=== PATIENT | male | born 1985 | race Caucasian/White ===

== ENCOUNTER 2024-11-27 12:20 | Emergency (ER) | payer OTHER, SELFPAY ==
--- NOTE | ~2024-11-27 | XR_ITS ---
EXAM/ PROCEDURE: XR elbow LT min 3V - 11/27/2024 13:45 CDT HISTORY: 39 years old Male with fall off ladder COMPARISON: None available TECHNIQUE: Three view(s) FINDINGS/ IMPRESSION: There are no fractures or dislocations.Joint spaces are within normal limits. Reviewed, dictated and finalized at location A.
--- NOTE | ~2024-11-27 | XR_ITS ---
EXAM/ PROCEDURE: XR shoulder LT min 2V - 11/27/2024 13:45 CDT HISTORY: 39 years old Male with fall off ladder COMPARISON: None available TECHNIQUE: Four view(s) FINDINGS/ IMPRESSION: There are no fractures or dislocations.Joint spaces are within normal limits. Reviewed, dictated and finalized at location A.
--- NOTE | ~2024-11-27 | XR_ITS ---
EXAM/ PROCEDURE: XR wrist LT min 3V - 11/27/2024 13:45 CDT HISTORY: 39 years old Male with fall off ladder COMPARISON: None available TECHNIQUE: Three view(s) FINDINGS/ IMPRESSION: There are no fractures or dislocations.Joint spaces are within normal limits. Reviewed, dictated and finalized at location A.
--- NOTE | ~2024-11-27 | XR_ITS ---
EXAM/ PROCEDURE: XR hip LT 2V w AP pelvis - 11/27/2024 13:45 CDT HISTORY: 39 years old Male with fall off ladder COMPARISON: None available TECHNIQUE: Three view(s) FINDINGS/ IMPRESSION: There are no fractures or dislocations.Joint spaces are within normal limits. Reviewed, dictated and finalized at location A.
--- OUTSIDE RECORDS SUMMARY | 2024-11-27 12:22 | XMS_ITS | Clinical Summary ---
Author Organization [facility] Address [address] [place] [address] Care Team Providers Care Process Project Engineer Name Role Phone Unavailable Primary Care Provider Unavailabl e Social History Tobacco Use Types Packs/Day Years Used Date Smoking Tobacco: Never Assessed Sex and Gender Information Value Date Recorded Sex Assigned at Not on file Legal Sex Male 8:48 AM CDT Gender Identity Not on file Sexual Orientation Not on file Plan of Treatment Health Maintenance Due Date Last Done Comments HPV VACCINES (1 - Male 3-dose series) 1998 DTAP/TDAP/TD VACCINES (1 - Tdap) 2002 HEPATITIS B VACCINES (1 of 3 - 19+ 3-dose series) 02/04 INFLUENZA VACCINE (#1) 2024 Insurance [facility] [employer] CHOICE
--- OUTSIDE RECORDS SUMMARY | 2024-11-27 12:22 | XMS_ITS | Clinical Summary ---
Author Organization [facility] Address [address] [place] [id number] Care Team Providers Care Tape Calender Name Role Phone Unavailable Primary Care Provider Unavailabl e Allergies No known active allergies Medications No known medications Active Problems No known active problems Family History Medical History Relation Comments Diabetes Father Heart Disease Father Stroke Father Relation Status Comments Father Social History Tobacco Use Types Packs/Day Years Used Date Smoking Tobacco: Never Smokeless Tobacco: Never Alcohol Use Standard Drinks/Week Comments No 0 (1 standard drink = 0.6 oz pur e alcohol) Sex and Gender Information Value Date Recorded Sex Assigned at Not on file Legal Sex Male 8:26 PM CDT Gender Identity Not on file Sexual Orientation Not on file Last Filed Vital Signs Vital Sign Reading Time Taken Comments Blood Pressure 133/75 09/12/2017 12:29 PM CDT Pulse - - Temperature 36.7 C (98.1 F) 09/12/2017 12:29 PM CDT Respiratory Rate 20 09/12/2017 12:29 PM CDT Oxygen Saturation 98% 09/12/2017 12:29 PM CDT Inhaled Oxygen Concentration - - Weight 81.6 kg (180 lb) 09/12/2017 12:29 PM CDT Height 175.3 cm (5' 9) 09/12/2017 12:29 PM CDT Body Mass Index 26.58 09/12/2017 12:29 PM CDT Plan of Treatment Health Maintenance Due Date Last Done Comments Annual Physical 1986 Hepatitis C 2001 DTaP, Tdap and Td Vaccines ( 1 - Tdap) 2002 Hepatitis B Vaccines (1 of 3 - 19+ 3-dose series) 2002 HPV Vaccines (1 - 3-dose SCD M series) 2010 COVID-19 Vaccine (2023-2 5 season) 2024 Meningococcal B Vaccine Aged Out No l onger eligible based on patient's age to complete this topic Meningococcal Vaccine Aged Out No lolita bertha eligible based on patient's age to complete this topic Pneumococcal Vaccine: Pediat rics (0 to 5 Years) and At-Risk Patients (6 to 49 Years) Aged Out No longer eligible b ased on patient's age to complete this topic RSV Immunizations Under 20 Months Aged Out No longer eligible based on patient's age to complete this topic
--- OUTSIDE RECORDS SUMMARY | 2024-11-27 12:22 | XMS_ITS | Data Portability ---
Author Organization [facility], Main Office Address [address] [place] [address] Care Team Providers Care Greenhouse Florist Name Role Phone WILDER GODWIN Primary Care Provider Assessment No assessment recorded. Plan of Treatment Reminders Order Date Submit Date Provider Last Modified By Organization Details Last Modified Time Details Appointments None record ed. Lab None record ed. Referral None record ed. Procedures None record ed. Surgeries None record ed. Imaging None record ed. Medication Orders neomyc in-cyndi ymyxin -hydro rosa 3.5 mg-10, 000 unit/m L-1 % ear drops, susp 024 06/06/19 24 [id number], [address], [place], [id number], 4 18:02:31 Patient TargetsNo targets recorded. Patient InstructionsNo instructions recorded. Reason for Referral None Reported. Problems Name Problem SNOMED Code Status Onset Date Resolution Date Notes Provider Name and Address Organization Details Recorded Time Right upper quadrant pain 454116729 Active 020 Not Available [facility] 3 22:21:38 [place] 397646642 Active 020 Not Available [facility] 3 22:21:38 Hearing loss of right ear 542603902 Active 024 Wilder Godwin MD [address] [address], [place], [address] , [facility] 4 18:04:55 Obesity 012867420 Active 024 Wilder Godwin MD [address], [place], [address] , [facility] 4 18:05:01 Problem Notes None recorded. Medical Equipment None Reported. Medications Name Sig Start Date Stop Date Status Note LastModified by Organization Details LastModified Time amoxicillin 500 mg capsule TK ONE C PO TID TAT 03/09 completed Not Available Not Available Not Available oxycodone-a cetaminophe n 5 mg-325 mg tablet TAKE 1 TABLET BY MOUTH EVERY 4 HOURS NEEDED FOR MODERATE PAIN SCALE 4 TO 6 05/19 completed Not Available Not Available Not Available neomycin-po lymyxin-hyd rocort 3.5 mg-10,000 unit/mL-1 % ear drops,susp SHAKE LIQUID AND INSTILL 3 TO 4 DROPS TO AFFECTED EAR THREE TIMES DAILY active Not Available Not Available No t Available Vitals Date Recorded Body height Body mass index (BMI) Body weight Body temperature Heart rate Respiratory rate Oxygen saturation Oxygen saturation in Arterial blood by Pulse oximetry Systolic blood pressure Provider Name and Address Organization Details Last Updated DateTime 4 172.72 cm 32.2 kg/m2 03626.9 3 g 97.1 [degF] 78 /min 16 /min 98 % 98 % 138 mm[Hg] Yannick Decker [facility] [employer] [facility] 4 17:57:26 Social History None recorded. Functional Status None recorded. Mental Status None recorded. Family History Nothing Reported. Medical History No medical history recorded. Past Encounters Encounter ID Performer Location Encounter Start Date Encounter Closed Date Diagnosis/Indication Diagnosis SNOMED-CT Code Diagnosis ICD10 Code Diagnosis Note [id number] Wilder Godwin MD [facility] [address] [address] 06/06/2023 17:49:47 06/06/2023 18:07:27 Otalgia of right ear 5444224865 H92.01 Hearing lo ss of right ear 087935628 H91.91 Obesity 314425978 E66.9 Health Concerns Section Related Observation LastModified by Organization Detai ls LastModified Time None Recorded Concern Status LastModified by Organization Details LastModified Time None Recorded Advance Directives Directive None Recorded Payers Insurance Date Sequence Insurance Name Policy Number Policy Parker Covered Member ID Parker Member ID Guarantor Name 06/19/2023 1 [facility] ([place]) [id number] Chetan Fierro [id number] Chetan Fierro 02/19/2024 1 [place] [id number] Chetan Fierro [id number] Chetan Fierro 06/06/2023 1 [facility] - DOS PRIOR TO 2020 (MEDICAID REPLACEMENT - HMO) Chetan Fierro [id number] Chetan Fierro Notes Date Note Type Note Provider Name and Address Organization Details Recorded Time 06/06/2023 text/html ACV: C/o Rt ear pain and pressure for last couple weeks. Pt's and son was sick last week. His other symptoms are getting better now. Pt is not able to hear properly from his Rt ear for last many years. Wilder Godwin MD [address] [place] [address], [place], [address], [place] [facility] 06/06/2023 18:05:32
--- OUTSIDE RECORDS SUMMARY | 2024-11-27 12:22 | XMS_ITS | Clinical Summary ---
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 Gender Identity Not on file Sexual Orientation Not on file Plan of Treatment Health Maintenance Due Date Last Done Comments Hepatitis C Virus (HCV) Screening 1983 TdaP Immunization 1983 Human Papillomavirus (HPV) Immunization (1 - Male 3-dose series) 1998 Hepatitis B Immunization (1 of 3 - 19+ 3-dose series) 2002 SARS-COV-2 Immunization ( - season) 2024 Influenza Immunization (#1) 2025 Respiratory Syncytial Virus (RSV) Immunization (Adult) (1 - 1-dose 75+ series) 2058 Meningococcal Immunization (ACWY) Aged Out No longer eligible based on patient's age to complete this topic Pneumococcal Immunization Combined Aged Out No longer eligible based on patient's age to complete this topic Rotavirus Immunization Aged Out No lo nger eligible based on patient's age to complete this topic
[2024-11-27 13:11] VITALS: BP 140/98; PULSE 92; RESP 16; TEMP 36.9; O2SAT 98
--- NOTE | 2024-11-27 13:22 | ED_ITS ---
HPI - Trauma General Chief Complaint: Extremity Injury, Upper <Socorro Bush APRN - Last Filed: 11/27/24 13:24> Stated Complaint: fall, left arm injury, hip injury <Socorro Bush APRN - Last Filed: 11/27/24 13:24> Time Seen by Provider: 11/27/24 13:20 <Socorro Bush APRN - Last Filed: 11/27/24 13:24> Focused HPI: Patient is a 39-year-old male who presents to the ER following a fall from a 1 story ladder. He reports he lost his balance and fell to the ground on his left side. At the time of examination patient endorses left shoulder pain, left elbow pain, left hip pain, and left wrist pain. He ADAMANTLY denies hitting his head, neck pain or headache. Patient denies loss of consciousness. He believes his tetanus shot was last administered approximately 6 years ago so he will be revaccinated today. Patient denies any medical history relevant to this ER visit. GENERAL: Well-appearing, well-nourished, and in no acute distress. HEAD: Normocephalic, atraumatic. CHEST: Clear to auscultation. ?No respiratory distress. HEART: Regular rate and rhythm.? NEURO: ?Alert and oriented x3. Patient screened in triage and initial orders placed.? ?Additional care and disposition to be based upon?diagnostic testing and treatment. <Socorro Bush APRN - Last Filed: 11/27/24 13:24> History of Present Illness HPI narrative: I agree with the above HPI <Yannick Cavanaugh MD - Last Filed: 11/27/24 18:16> Related Data Allergies/Adverse Reactions: Allergies Allergy/AdvReac Type Severity Reaction Status Date / Time No Known Allergies Allergy Verified 11/27/24 13:16 <Scoorro Bush APRN - Last Filed: 11/27/24 13:24> Review of Systems Review of Systems: All systems reviewed & are unremarkable except as noted in HPI and below <Yannick Cavanaugh MD - Last Filed: 11/27/24 18:16> PMFSH Family History Family History: Family History (Updated 07/22/18 @ 14:13 by DOCTOR UNKNOWN) Father Hypertension Cerebrovascular accident Family history of coronary artery disease Family history of type 2 diabetes mellitus Mother Hypertension Sibling Patient's brother is in good health <Socorro Bush APRN - Last Filed: 11/27/24 13:24> Social History Social History: Social History Smoking status: Never smoker Alcohol intake: never <Soocrro Bush APRN - Last Filed: 11/27/24 13:24> Exam Narrative: APPEARANCE: Well appearing, no pain, no distress, well-nourished. HEAD: normocephalic, atraumatic. EYES: PERRLA/EOMI, conjunctivae clear. NOSE: Normal no drainage EARS:TMS clear with good light reflex. THROAT: Pharynx clear, no exudate. NECK: Supple. No adenopathy, no masses. RESPIRATORY: Airway patent, respirations nonlabored. Clear to auscultation bilaterally, no rales, rhonchi, wheezing. CARDIOVASCULAR: Regular rate and rhythm without murmurs rubs or gallops. ABDOMINAL: Soft, nontender, nondistended, normal bowel sounds MUSCULOSKELETAL: Limited range of motion of left wrist with tenderness to palpation NEURO: Alert. Cranial nerves II through XII intact. Good gait. Good coordination SKIN: 1 cm left elbow laceration <Yannick Cavanaugh MD - Last Filed: 11/27/24 18:16> Course Vital Signs Vital signs: Vital Signs Temperature 98.5 F 11/27/24 13:11 Pulse Rate 92 11/27/24 13:11 Respiratory Rate 16 11/27/24 13:11 Blood Pressure 140/98 H 11/27/24 13:11 Pulse Oximetry 98 11/27/24 13:11 Oxygen Delivery Room Air 11/27/24 13:11 Temperature 97.9 F 11/27/24 17:30 Pulse Rate 72 11/27/24 17:30 Respiratory Rate 16 11/27/24 17:30 Blood Pressure 132/74 11/27/24 17:30 Pulse Oximetry 100 11/27/24 17:30 Oxygen Delivery Room Air 11/27/24 13:11 <Socorro Bush APRN - Last Filed: 11/27/24 13:24> Vital Signs Temperature 98.5 F 11/27/24 13:11 Pulse Rate 92 11/27/24 13:11 Respiratory Rate 16 11/27/24 13:11 Blood Pressure 140/98 H 11/27/24 13:11 Pulse Oximetry 98 11/27/24 13:11 Oxygen Delivery Room Air 11/27/24 13:11 Temperature 97.9 F 11/27/24 17:30 Pulse Rate 72 11/27/24 17:30 Respiratory Rate 16 11/27/24 17:30 Blood Pressure 132/74 11/27/24 17:30 Pulse Oximetry 100 11/27/24 17:30 Oxygen Delivery Room Air 11/27/24 13:11 <Yannick Cavanaugh MD - Last Filed: 11/27/24 18:16> MDM - Trauma MDM Narrative Medical decision making narrative: 39-year-old male who is present to the emergency department for evaluation for left elbow injury, left wrist pain, left hip pain she and left shoulder injury. Patient does have some decreased range of motion of the left wrist. Patient does have a laceration to his left elbow that is approximately 1 cm in length and patient declined any laceration repair. <Yannick Cavanaugh MD - Last Filed: 11/27/24 18:16> Differential Diagnosis Differential diagnosis: Likely fracture of pelvis (Elbow fracture, elbow contusion, elbow laceration, wrist sprain, wrist contusion, hip fracture, hip contusion, shoulder strain, shoulder fracture) <Yannick Cavanaugh MD - Last Filed: 11/27/24 18:16> Imaging Data Attestation: I personally reviewed and interpreted this imaging study as follows: <Yannick Cavanaugh MD - Last Filed: 11/27/24 18:16> Discharge Plan Discharge Clinical Impression: Sprain and strain of wrist, Elbow laceration <Socorro Bush APRN - Last Filed: 11/27/24 13:24> Patient Disposition: Home <Socorro Bush APRN - Last Filed: 11/27/24 13:24> Condition: Stable <Socorro Bush APRN - Last Filed: 11/27/24 13:24> Instructions: Antibiotic Form, Laceration (ED), Wrist Sprain (ED) <Socorro Bush APRN - Last Filed: 11/27/24 13:24> Additional Instructions: You declined any repair of the left elbow laceration. Wound care as directed. Josef wrap for comfort for the left wrist. Tylenol and ibuprofen for pain control. Have close follow-up with your primary care physician. If you have any worsening symptoms then please call or return to the emergency department. <Socorro Bush APRN - Last Filed: 11/27/24 13:24> Patient Language: Maltese <Socorro Bush APRN - Last Filed: 11/27/24 13:24> Follow-up/Referrals: PHYSICIAN,PRIMING MACHINE OPERATOR [Primary Care Provider] - <Socorro Bush APRN - Last Filed: 11/27/24 13:24>
--- OUTSIDE RECORDS SUMMARY | 2024-11-27 16:26 | XMS_ITS | Clinical Summary ---
Author Organization [facility] Address [address] [place] [address] Care Team Providers Care Nsh Teacher Name Role Phone Unavailable Primary Care Provider [...]
--- OUTSIDE RECORDS SUMMARY | 2024-11-27 16:26 | XMS_ITS | Clinical Summary ---
Author Organization [facility] Address [address] [place] [place] [address] Care Team Providers Care Solutions Specialist Name Role Phone Unavailable Primary Care Provider [...] series) 02/04 INFLUENZA VACCINE (#1) 2024 Insurance [facility] [employer] CHOICE
--- OUTSIDE RECORDS SUMMARY | 2024-11-27 16:26 | XMS_ITS | Clinical Summary ---
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
[2024-11-27 17:30] VITALS: BP 132/74; PULSE 72; RESP 16; TEMP 36.6; O2SAT 100
== END 2024-11-27 17:45 | disposition home or self-care (01) ==
PROVIDERS: Emergency Provider Emergency Medicine
DX: S51.012A Laceration without foreign body of left elbow, initial encounter (principal); S66.912A Strain of unspecified muscle, fascia and tendon at wrist and hand level, left hand, initial encounter; S63.502A Unspecified sprain of left wrist, initial encounter; S49.92XA Unspecified injury of left shoulder and upper arm, initial encounter; S79.912A Unspecified injury of left hip, initial encounter; W11.XXXA Fall on and from ladder, initial encounter
CPT/HCPCS: 73030; 73080; 73110; 73502; 90715; 99284